=== PATIENT | female | born 1945 | race Asian ===

== ENCOUNTER → 2017-02-25 | Outpatient (CLI) | payer OTHER, MEDICAID | LOC: BHFA 09:15 | PROVIDERS: ATTEND Internal Medicine Cardiovascular Disease | DX: I10 Essential (primary) hypertension (principal); E78.5 Hyperlipidemia, unspecified ==

== ENCOUNTER → 2017-10-02 | Outpatient (CLI) | payer OTHER, MEDICAID | LOC: FIMAGING 14:31 | PROVIDERS: ATTEND Family Medicine | DX: Z12.31 Encounter for screening mammogram for malignant neoplasm of breast (principal) | CPT/HCPCS: G0202 ==

== ENCOUNTER → 2017-12-06 | Outpatient (CLI) | payer OTHER, MEDICAID | LOC: FIMAGING 13:07 | PROVIDERS: ATTEND Family Medicine | DX: Z13.820 Encounter for screening for osteoporosis (principal); M85.80 Other specified disorders of bone density and structure, unspecified site; E11.9 Type 2 diabetes mellitus without complications; E78.5 Hyperlipidemia, unspecified; G89.29 Other chronic pain; Z79.899 Other long term (current) drug therapy; Z78.0 Asymptomatic menopausal state ==

== ENCOUNTER 2018-03-12 11:17 | Emergency (ER) | payer OTHER, MEDICAID ==
[2018-03-12] MEDS ORDERED: HYDROmorphONE/DILAUDID 2 MG/ML INJ IM ONE (12:04)
--- NOTE | 2018-03-12 12:07 | EDPHY ---
H & P Stated Complaint: fall from bottom step, r arm and chest injury Time Seen by Provider: 03/12/18 11:59 HPI/ROS: CHIEF COMPLAINT: Left arm and rib pain HISTORY OF PRESENT ILLNESS: The patient is a 72-year-old female who comes to the emergency department complaining of left proximal humerus and left rib pain after she fell this morning. She missed the last 2 steps and fell forward onto the ground. She denies head neck or back pain. She has a history of diabetes and hypertension and arthritis. She denies any cardiac history. She states that it hurts to take a deep breath but denies shortness of breath. She denies forearm or wrist or hand pain. REVIEW OF SYSTEMS: Constitutional: denies: chills, fever, recent illness, recent injury EENTM: denies: blurred vision, double vision, nose congestion Respiratory: denies: cough, shortness of breath Cardiac: denies: chest pain, irregular heart rate, lightheadedness, palpitations Gastrointestinal/Abdominal: denies: abdominal pain, diarrhea, nausea, vomiting, blood streaked stools Genitourinary: denies: dysuria, frequency, hematuria, pain Musculoskeletal: See HPI Skin: denies: lesions, rash, jaundice, bruising Neurological: denies: headache, numbness, paresthesia, tingling, dizziness, weakness Hematologic/Lymphatic: denies: blood clots, easy bleeding, easy bruising Immunologic/allergic: denies: HIV/AIDS, transplant EXAM: GENERAL: Well-appearing, well-nourished and in no acute distress. HEAD: Atraumatic, normocephalic. EYES: Pupils equal round and reactive to light, extraocular movements intact, sclera anicteric, conjunctiva are normal. ENT: TMs normal, nares patent, oropharynx clear without exudates. Moist mucous membranes. NECK: Normal range of motion, supple without lymphadenopathy or JVD. LUNGS: Breath sounds clear to auscultation bilaterally and equal. No wheezes rales or rhonchi. HEART: Regular rate and rhythm without murmurs, rubs or gallops. ABDOMEN: Soft, nontender, normoactive bowel sounds. No guarding, no rebound. No masses appreciated. BACK: No CVA tenderness, no spinal tenderness, step-offs or deformities EXTREMITIES: Pain to the left proximal humerus, no clavicular tenderness, no tenderness or swelling to the elbow. No obvious deformity. Normal pulses and sensation distally. NEUROLOGICAL: Cranial nerves II through XII grossly intact. Normal speech, normal gait. 5/5 strength, normal sensation PSYCH: Normal mood, normal affect. SKIN: Warm, dry, normal turgor, no visible rashes or lesions. Source: Patient, Family Exam Limitations: Language barrier ( interpreting patient preference) - Personal History Current Tetanus Diphtheria and Acellular Pertussis (TDAP): Unsure - Medical/Surgical History Hx Asthma: No Hx Chronic Respiratory Disease: No Hx Diabetes: Yes Hx Cardiac Disease: No Hx Renal Disease: No Hx Cirrhosis: No Hx Alcoholism: No Hx HIV/AIDS: No Hx Splenectomy or Spleen Trauma: No Other PMH: diabetes, arthritis, htn - Family History Significant Family History: No pertinent family hx - Social History Smoking Status: Never smoked Alcohol Use: None Constitutional: Initial Vital Signs Temperature (C) 36.7 C 03/12/18 11:25 Heart Rate 79 03/12/18 11:25 Respiratory Rate 16 03/12/18 11:25 Blood Pressure 140/87 H 03/12/18 11:25 O2 Sat (%) 96 03/12/18 11:25 O2 Delivery Mode Room Air Allergies/Adverse Reactions: No Known Allergies Allergy (Unverified 03/12/18 11:29) Home Medications: Medication Instructions Recorded Clotrimazole 03/12/18 DULoxetine 03/12/18 Hydrochlorothiazide 03/12/18 Hydrocodone/APAP 5/325 [[place] 1 - 2 tab PO Q4H PRN #10 tab 03/12/18 5/325 (RX)] Jardiance 03/12/18 LYRICA 03/12/18 Lovastatin 03/12/18 [place]-3 Acid Ethyl Esters 03/12/18 Medical Decision Making - Diagnostics Imaging Results: Imaging Impressions Ribs w/Chest X-Ray 03/12/18 12:03 Impression: 1. There is no acute rib fracture identified. 2. Acute fractures of the proximal left humerus. Left Humerus (AP and Lateral Views, at 11:57 AM): There is a longitudinal fracture through the greater tuberosity of the proximal lateral humerus, and also a transversely oriented nondisplaced fracture through the surgical neck of the proximal left humerus. The glenohumeral joint remains anatomically-aligned. There is a well-corticated ossific density along the distal medial humeral condyle. There is some minor degenerative spurring along the proximal ulna. The bones appear mildly demineralized. Impression: Acute proximal humeral fractures at the level of the greater tuberosity and surgical neck. Left Shoulder (5 Views, at 11:55 AM): Again noted is an acute nondisplaced fracture through the surgical neck of the proximal left humerus, as well as a longitudinal fracture through the greater tuberosity. There is probable clinically and glenohumeral hemarthrosis. The bones are demineralized. There is mild degenerative change of the common clavicular joint. The scapula and visualized left rib cage are intact. The coracoclavicular distance is normal. There are degenerative features of the cervical spine. Impression: Proximal humeral fractures at the level of the surgical neck and the greater tuberosity. Humerus X-Ray 03/12/18 12:04 Impression: 1. There is no acute rib fracture identified. 2. Acute fractures of the proximal left humerus. Left Humerus (AP and Lateral Views, at 11:57 AM): There is a longitudinal fracture through the greater tuberosity of the proximal lateral humerus, and also a transversely oriented nondisplaced fracture through the surgical neck of the proximal left humerus. The glenohumeral joint remains anatomically-aligned. There is a well-corticated ossific density along the distal medial humeral condyle. There is some minor degenerative spurring along the proximal ulna. The bones appear mildly demineralized. Impression: Acute proximal humeral fractures at the level of the greater tuberosity and surgical neck. Left Shoulder (5 Views, at 11:55 AM): Again noted is an acute nondisplaced fracture through the surgical neck of the proximal left humerus, as well as a longitudinal fracture through the greater tuberosity. There is probable clinically and glenohumeral hemarthrosis. The bones are demineralized. There is mild degenerative change of the common clavicular joint. The scapula and visualized left rib cage are intact. The coracoclavicular distance is normal. There are degenerative features of the cervical spine. Impression: Proximal humeral fractures at the level of the surgical neck and the greater tuberosity. Shoulder X-Ray 03/12/18 12:04 Impression: 1. There is no acute rib fracture identified. 2. Acute fractures of the proximal left humerus. Left Humerus (AP and Lateral Views, at 11:57 AM): There is a longitudinal fracture through the greater tuberosity of the proximal lateral humerus, and also a transversely oriented nondisplaced fracture through the surgical neck of the proximal left humerus. The glenohumeral joint remains anatomically-aligned. There is a well-corticated ossific density along the distal medial humeral condyle. There is some minor degenerative spurring along the proximal ulna. The bones appear mildly demineralized. Impression: Acute proximal humeral fractures at the level of the greater tuberosity and surgical neck. Left Shoulder (5 Views, at 11:55 AM): Again noted is an acute nondisplaced fracture through the surgical neck of the proximal left humerus, as well as a longitudinal fracture through the greater tuberosity. There is probable clinically and glenohumeral hemarthrosis. The bones are demineralized. There is mild degenerative change of the common clavicular joint. The scapula and visualized left rib cage are intact. The coracoclavicular distance is normal. There are degenerative features of the cervical spine. Impression: Proximal humeral fractures at the level of the surgical neck and the greater tuberosity. Imaging: I viewed and interpreted images myself (Proximal humerus fracture) ED Course/Re-evaluation: 1:00 p.m. We discussed the x-ray results. We will treat the patient with sling and follow up with Orthopedics. She he feels slightly dizzy after the Dilaudid IM. I will treat her with ibuprofen and prescribed Vicodin for home. She and her are happy with this plan and declines further workup or testing at this time. Differential Diagnosis: Partial list of the Differential diagnosis considered include but were not limited to; humerus fracture, clavicle fracture, AC separation, rib fracture, pneumothorax and although unlikely based on the history and physical exam, I also considered acute coronary disease, neck injury, head injury. I discussed these differential diagnoses and the plan with the patient as well as the usual and expected course. The patient understands that the diagnosis is provisional and that in medicine we are not always correct and that further workup is often warranted. Usual and customary warnings were given. All of the patient's questions were answered. The patient was instructed to return to the emergency department should the symptoms at all worsen or return, otherwise to followup with the physician as we discussed. - Data Points Medications Given: Discontinued Medications Hydromorphone HCl (Dilaudid) 1 mg IM EDNOW ONE Stop: 03/12/18 12:05 Last Admin: 03/12/18 12:13 Dose: 1 mg Ibuprofen (Motrin) 800 mg PO EDNOW ONE Stop: 03/12/18 13:06 Last Admin: 03/12/18 13:08 Dose: 800 mg Departure - Departure Disposition: Home, Routine, Self-Care Clinical Impression: Fracture of proximal end of left humerus Qualifiers: Encounter type: initial encounter Fracture type: closed Fracture morphology: unspecified fracture morphology Qualified Code(s): S42.202A - Unspecified fracture of upper end of left humerus, initial encounter for closed fracture Condition: Fair Instructions: Proximal Humerus Fracture (ED) Referrals: Joyce Melvin MD [Primary Care Provider] - As per Instructions Rohit Mario MD [Medical Doctor] - 5-7 days, call for appt. Prescriptions: Hydrocodone/APAP 5/325 [[place] 5/325 (RX)] 1 - 2 tab PO Q4H PRN #10 tab PRN Reason: Pain, Moderate
[2018-03-12] MEDS ORDERED: IBUPROFEN 800 MG TAB PO ONE (13:05)
[2018-03-12 14:13] VITALS: BP 135/87
== END 2018-03-12 14:20 | disposition home or self-care (01) ==
DX: S42.202A Unspecified fracture of upper end of left humerus, initial encounter for closed fracture (principal); W18.39XA Other fall on same level, initial encounter
CPT/HCPCS: 71101; 73030; 73060; 96372; 99284; A4565; J1170

== ENCOUNTER → 2018-03-25 | Outpatient (CLI) | payer OTHER, MEDICAID | LOC: BMCIMAGING 14:17 | PROVIDERS: ATTEND Orthopaedic Surgery | DX: S42.232D 3-part fracture of surgical neck of left humerus, subsequent encounter for fracture with routine healing (principal) ==

== ENCOUNTER → 2018-04-14 | Outpatient (CLI) | payer OTHER, MEDICAID | LOC: BMCIMAGING 14:16 | PROVIDERS: ATTEND Orthopaedic Surgery | DX: S42.232D 3-part fracture of surgical neck of left humerus, subsequent encounter for fracture with routine healing (principal) ==

== ENCOUNTER → 2018-04-28 | Outpatient (CLI) | payer OTHER, MEDICAID | LOC: BMCIMAGING 14:02 | PROVIDERS: ATTEND Orthopaedic Surgery | DX: S42.232A 3-part fracture of surgical neck of left humerus, initial encounter for closed fracture (principal) ==

== ENCOUNTER → 2019-02-06 | Outpatient (CLI) | payer OTHER, MEDICAID | LOC: FIMAGING 10:42 | PROVIDERS: ATTEND Family Medicine | DX: J44.9 Chronic obstructive pulmonary disease, unspecified (principal) ==

== ENCOUNTER → 2019-02-24 | Outpatient (CLI) | payer OTHER, MEDICAID | LOC: BHFA 08:30 | PROVIDERS: ATTEND Internal Medicine Cardiovascular Disease | DX: R07.9 Chest pain, unspecified (principal); R06.02 Shortness of breath; E78.5 Hyperlipidemia, unspecified; E11.9 Type 2 diabetes mellitus without complications | CPT/HCPCS: 78452; 93017; A9500; J2785 ==